=== PATIENT | female | born 2000 | race American Indian/Alaskan Native ===

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

== ENCOUNTER 2020-12-16 19:53 | Emergency (ER) | payer OTHER ==
[2020-12-16 21:07] VITALS: BP 125/84
--- NOTE | 2020-12-16 21:22 | Emergency Department Report ---
ED Eye Problem HPI - General Chief complaint: Eye Problems Stated complaint: LEFT EYE RED Time Seen by Provider: 12/16/20 21:17 Source: patient Mode of arrival: Ambulatory Limitations: No Limitations - History of Present Illness Initial comments: Patient is a 20-year-old female presents emergency room complaints of left thigh redness and irritation that began a week and a half ago. She states that she has photophobia. She states that occasionally the eye feels blurry. She denies any vision loss. She states that it has been frequently watering but denies any crusting or mucus drainage. She denies any sick contacts in the same thing. She denies any contact lens use. She denies any false lashes. She denies anything getting into the eye. She has not seen an eye doctor. No past medical history. No allergies medications. Currently on her menstrual cycle. - Related Data Previous Rx's Medication Instructions Recorded Last Taken Type Butalb/Acetamin/Caff 50-325-40 1 each PO Q4H PRN #15 tablet 02/27/17 Unknown Rx [Fioricet] Prochlorperazine [Compazine] 10 mg PO ONCE #15 tablet 02/27/17 Unknown Rx Ketotifen Fumarate 1 drop OS BID #1 bottle 12/16/20 Unknown Rx Tobramycin/Dexameth 0.3-0.1% 2 drops OS Q6HR #1 bottle 12/16/20 Unknown Rx [Tobradex] Allergies Allergy/AdvReac Type Severity Reaction Status Date / Time No Known Allergies Allergy Unverified 02/27/17 15:43 ED Review of Systems ROS: Stated complaint: LEFT EYE RED Other details as noted in HPI Comment: All other systems reviewed and negative ED Past Medical Hx - Past Medical History Previous Medical History?: No - Surgical History Past Surgical History?: No - Social History Smoking Status: Never Smoker Substance Use Type: None - Medications Home Medications: Home Medications Medication Instructions Recorded Confirmed Last Taken Type Butalb/Acetamin/Caff 50-325-40 1 each PO Q4H PRN #15 tablet 02/27/17 Unknown Rx [Fioricet] Prochlorperazine [Compazine] 10 mg PO ONCE #15 tablet 02/27/17 Unknown Rx Ketotifen Fumarate 1 drop OS BID #1 bottle 12/16/20 Unknown Rx Tobramycin/Dexameth 0.3-0.1% 2 drops OS Q6HR #1 bottle 12/16/20 Unknown Rx [Tobradex] ED Physical Exam - General Limitations: No Limitations General appearance: alert, in no apparent distress - Head Head exam: Present: atraumatic, normocephalic - Eye Eye exam: Present: PERRL, EOMI, other (injection of the left lateral sclera ). Absent: periorbital swelling, periorbital tenderness Pupils: Present: normal accommodation - ENT ENT exam: Present: mucous membranes moist - Respiratory Respiratory exam: Absent: respiratory distress, accessory muscle use - Neurological Exam Neurological exam: Present: alert, oriented X3 - Psychiatric Psychiatric exam: Present: normal affect, normal mood - Skin Skin exam: Present: warm, dry, intact ED Course Vital Signs 12/16/20 20:57 Temperature 98.9 F Pulse Rate 78 Respiratory 19 Rate Blood Pressure 125/84 O2 Sat by Pulse 99 Oximetry ED Medical Decision Making - Medical Decision Making Patient is a 20-year-old female presents emergency room complaints of left thigh redness and irritation that began a week and a half ago. She states that she has photophobia. She states that occasionally the eye feels blurry. She denies any vision loss. She states that it has been frequently watering but denies any crusting or mucus drainage. She denies any sick contacts in the same thing. She denies any contact lens use. She denies any false lashes. She denies anything getting into the eye. She has not seen an eye doctor. No past medical history. No allergies medications. Currently on her menstrual cycle. Vitals are normal. On exam: injection of the left lateral sclera, EOMI, PERRLA, no periorbital edema or erythema. Examination could be consistent with uveitis versus iritis. Patient given prescription for TobraDex and Zaditor eyedrops. Discussed in detail with patient the importance of ophthalmology follow-up. Advised patient Please use medication as prescribed. Please wash your hands frequently. It is very important that you follow-up with insulation installer. Please follow-up in the next 2 to 3 days. Return to emergency room for any new or worsening symptoms. Avoid rubbing the eyes. Critical care attestation.: If time is entered above; I have spent that time in minutes in the direct care of this critically ill patient, excluding procedure time. ED Disposition Clinical Impression: Irritation of left eye, Redness of left eye Disposition: DC-01 TO HOME OR SELFCARE Is pt being admited?: No Does the pt Need Aspirin: No Condition: Stable Instructions: Uveitis, [id number] Additional Instructions: Please use medication as prescribed. Please wash your hands frequently. It is very important that you follow-up with insulation installer. Please follow-up in the next 2 to 3 days. Return to emergency room for any new or worsening symptoms. Avoid rubbing the eyes. Prescriptions: Ketotifen Fumarate 1 drop OS BID #1 bottle Tobramycin/Dexameth 0.3-0.1% [Tobradex] 2 drops OS Q6HR #1 bottle Referrals: PRIMARY CAREMD [Primary Care Provider] - 2-3 Days [facility] [Provider Group] - 2-3 Days KYA CASTANEDA MD [Staff Physician] - 2-3 Days Time of Disposition: 21:19 Print Language: FIJIAN
== END 2020-12-16 21:44 | disposition home or self-care (01) ==
LOC: ED 19:53
DX: H57.12 Ocular pain, left eye (principal); H53.142 Visual discomfort, left eye; Z79.2 Long term (current) use of antibiotics; Z79.899 Other long term (current) drug therapy
CPT/HCPCS: 99282

== ENCOUNTER 2021-02-23 10:56 | Emergency (ER) | payer OTHER ==
[2021-02-23 11:12] VITALS: BP 138/88
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
== END 2021-02-23 12:52 | disposition home or self-care (01) ==
LOC: ED 10:56
DX: S16.1XXA Strain of muscle, fascia and tendon at neck level, initial encounter (principal); S39.012A Strain of muscle, fascia and tendon of lower back, initial encounter; M62.838 Other muscle spasm; Z79.899 Other long term (current) drug therapy; V49.59XA Passenger injured in collision with other motor vehicles in traffic accident, initial encounter; Y93.89 Activity, other specified; Y92.89 Other specified places as the place of occurrence of the external cause; Y99.8 Other external cause status
CPT/HCPCS: 99281

== ENCOUNTER 2022-06-09 08:32 | Emergency (ER) | payer OTHER ==
[2022-06-09] MEDS ORDERED: KETOROLAC 30 MG/1 ML INJ IV ONE (08:57)
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
[2022-06-09] MEDS ORDERED: ONDANSETRON 4 MG/2 ML INJ IV ONE (14:10)
[2022-06-09] MEDS ORDERED: MORPHINE 4 MG/1 ML INJ IV ONE (14:10)
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
[2022-06-09 17:23] VITALS: BP 118/84
== END 2022-06-09 17:35 | disposition home or self-care (01) ==
LOC: ED 08:32
DX: S66.912A Strain of unspecified muscle, fascia and tendon at wrist and hand level, left hand, initial encounter (principal); S76.012A Strain of muscle, fascia and tendon of left hip, initial encounter; S20.219A Contusion of unspecified front wall of thorax, initial encounter; V89.2XXA Person injured in unspecified motor-vehicle accident, traffic, initial encounter; Y93.89 Activity, other specified; Y92.89 Other specified places as the place of occurrence of the external cause; Y99.8 Other external cause status
CPT/HCPCS: 29125; 70450; 70486; 71045; 72100; 72125; 73110; 73502; 96374; 96375; 99285; J1885; J2270; J2405; 99284